=== PATIENT | male | born 1985 | race African-American/Black ===

== ENCOUNTER 2017-08-13 22:15 | Emergency (ER) | payer SELFPAY ==
[~2017-08-13] VITALS: Ht 175.3 cm; Wt 79.5 kg
[~2017-08-13 22:15] MED LIST: [UNRECOGNIZED DRUG - OTHER]
[2017-08-13 23:30] VITALS: BP 145/91
[2017-08-13] MEDS ORDERED: OxyCODONE HCL/ACETAMINOPHEN 5-325 MG TABLET PO ONE (23:45)
[2017-08-13] MEDS ORDERED: IBUPROFEN 600 MG TABLET PO ONE (23:45)
== END 2017-08-14 00:17 | disposition home or self-care (01) ==
LOC: EMS 22:15
DX: S62.305A Unspecified fracture of fourth metacarpal bone, left hand, initial encounter for closed fracture (principal); F17.210 Nicotine dependence, cigarettes, uncomplicated; W22.01XA Walked into wall, initial encounter; Y93.89 Activity, other specified; Y92.89 Other specified places as the place of occurrence of the external cause; Y99.8 Other external cause status
CPT/HCPCS: 29280; 99284; 99406